=== PATIENT | female | born 1995 | race Caucasian/White ===

== ENCOUNTER 2021-07-15 08:33 | Inpatient (IN) | payer BC, OTHER ==
[~2021-07-15] VITALS: Ht 162.6 cm; Wt 120.7 kg
--- NOTE | 2021-07-19 08:19 | PR ---
[facility] [address] [facility] [place], [place] [address] Signed Progress Notes IP Datetime Report Generated by CPN: 07/19/2021 08:19 PROGRESS NOTES: [id number] Impression: Normal Progression of Labor Procedures: Artificial ROM Plan: Continue Present Management VITAL SIGNS: [id number] Vital Signs: Reviewed; Within Normal Limits EXAM: [id number] Dilatation: 4.0 Effacement: 75 Station: -3 Contractions: every 2-4 minutes MEMBRANES: [id number] Membranes Status: Ruptured Comments: Tolerating contractions well, would like Epidural later. FETUS A: [id number] FHR Baseline: 125 Variability: Moderate 6-25bpm Accelerations: 15X15 Presentation: Vertex FETUS B: [id number] Signing Physician: Lupe Quintero MD Copies: ~ *Electronically Signed* 07/19/21 08 LUPE QUINTERO MD PATIENT NAME: JOSE ROSARIO PROGRESS NOTE DATE OF : [birth year] PHYSICIAN: LUPE QUINTERO MD RPT #: [id number] REPORT IS CONFIDENTIAL AND NOT TO BE RELEASED WITHOUT AUTHORIZATION
--- NOTE | 2021-07-19 14:27 | PR ---
[facility] [address] [facility] [place], [place] [address] Signed Progress Notes IP Datetime Report Generated by CPN: 07/19/2021 14:27 PROGRESS NOTES: [id number] Impression: Normal Progression of Labor Other Impressions: Slow Progress of labor Procedures: Intrauterine Pressure Catheter; Scalp Electrode Plan: Continue Present Management VITAL SIGNS: [id number] Vital Signs: Reviewed; Within Normal Limits EXAM: [id number] Dilatation: 7.0 Effacement: 90 Station: -2 Contractions: every 2-4 minutes MEMBRANES: [id number] Membranes Status: Ruptured Comments: Patient was progressing well, but much slower in past 2-3 hours. IUPC inserted, may need Pitocin augmentation; will watch closely. FETUS A: [id number] FHR Baseline: 125 Variability: Moderate 6-25bpm Accelerations: 15X15 Presentation: Vertex FETUS B: [id number] Signing Physician: Lupe Quintero MD Copies: ~ *Electronically Signed* 07/19/21 1427 LUPE QUINTERO MD PATIENT NAME: JOSE ROSARIO PROGRESS NOTE DATE OF : [birth year] PHYSICIAN: LUPE QUINTERO MD RPT #: [id number] REPORT IS CONFIDENTIAL AND NOT TO BE RELEASED WITHOUT AUTHORIZATION
--- NOTE | 2021-07-19 17:35 | PR ---
[facility] [address] [facility] [place], [place] [address] Signed Progress Notes IP Datetime Report Generated by CPN: 07/19/2021 17:35 PROGRESS NOTES: [id number] Impression: Normal Progression of Labor Other Impressions: Slow Progress Procedures: Intrauterine Pressure Catheter; Scalp Electrode Plan: Continue Present Management VITAL SIGNS: [id number] Vital Signs: Reviewed; Within Normal Limits EXAM: [id number] Dilatation: 8.0 Effacement: 95 Station: -2 Contractions: every 2-4 minutes MEMBRANES: [id number] Membranes Status: Ruptured Comments: PAtient with minimal/no change in past 2.5 hours, despite Pitocin augmentation with good contraciton pattern. Discussed possible C/S, if no change soon. Will contine Pitocin and watch closely a little longer. Discussed possible C/S with patient. FETUS A: [id number] FHR Baseline: 125 Variability: Moderate 6-25bpm Accelerations: 15X15 Presentation: Vertex FETUS B: [id number] Signing Physician: Lupe Quintero MD Copies: ~ *Electronically Signed* 07/19/21 6196 LUPE QUINTERO MD PATIENT NAME: JOSE ROSARIO PROGRESS NOTE DATE OF : [birth year] PHYSICIAN: LUPE QUINTERO MD RPT #: [id number] REPORT IS CONFIDENTIAL AND NOT TO BE RELEASED WITHOUT AUTHORIZATION
--- NOTE | 2021-07-19 18:40 | PR ---
[facility] [address] [place], [place] [address] Signed Progress Notes IP Datetime Report Generated by CPN: 07/19/2021 18:40 PROGRESS NOTES: [id number] Impression: Arrest of Dilatation/Descent Other Impressions: Slow Progress Procedures: Intrauterine Pressure Catheter; Scalp Electrode Plan: Deliver- Section Informed Consent Obtain: Section Delivery; Risks, Benefits and Alternatives Discussed VITAL SIGNS: [id number] Vital Signs: Reviewed; Within Normal Limits EXAM: [id number] Dilatation: 8.0 Effacement: 95 Station: -2 Contractions: every 2-4 minutes MEMBRANES: [id number] Membranes Status: Ruptured Comments: No change for about 4-4.5 hours, LGA fetus, and difficult labor with first, smaller baby. Recommend C/S. Discussed procedure, risks/benefits. Questions answered. Consent signed. call out clerk to [place]. FETUS A: [id number] FHR Baseline: 125 Variability: Moderate 6-25bpm Accelerations: 15X15 Presentation: Vertex FETUS B: [id number] Signing Physician: Lupe Quintero MD Copies: ~ *Electronically Signed* 07/19/21 788 LUPE QUINTERO MD PATIENT NAME: JOSE ROSARIO PROGRESS NOTE DATE OF : [birth year] PHYSICIAN: LUPE QUINTERO MD RPT #: [id number] REPORT IS CONFIDENTIAL AND NOT TO BE RELEASED WITHOUT AUTHORIZATION
--- NOTE | 2021-07-19 20:54 | NUR ---
07/19/212053 Pinto,Christi Méndez 2010: PATIENT FEBRILE ON ARRIVAL TO RECOVERY. PSYCHOLOGICAL OPERATIONS SPECIALIST AWARE. PATIENT SHAKY AND C/O FEELING COLD. DENIES PAIN AND NAUSEA. 2029: TEMP DOWN TO 99.2. PATIENT STILL SHAKY AT TIMES. PATIENT BABY. 2037: REPORT GIVEN TO C RN.
--- NOTE | 2021-07-20 11:56 | PR ---
[facility] [address] [facility] [place], [place] [address] Signed PP Progress Notes Datetime Report Generated by CPN: 07/20/2021 11:56 SUBJECTIVE: [id number] Pain: Within Normal Limits Nausea/Vomiting: Denies Vital Signs: [id number] Vital Signs: Reviewed; Within Normal Limits Notable Details: PP Hgb/Hct = 10.4/30.7 Abdomen/Uterus: Normal Lochia: Normal Extremities: Normal Incision: Normal IMPRESSION/PLAN/PROCEDURES: [id number] Impression: Normal Progression Plan: Continue Present Management Procedures: None Progress Notes: Doing well, without complaint, Manrique in place and draining well. Tolerating food well. Increase activity as tolerated, Manrique out this afternoon. Signing Physician: Lupe Quintero MD Copies: ~ *Electronically Signed* 07/20/21 1156 LUPE QUINTERO MD PATIENT NAME: JOSE ROSARIO PROGRESS NOTE DATE OF : 96 PHYSICIAN: LUPE QUINTERO MD RPT #: [id number] REPORT IS CONFIDENTIAL AND NOT TO BE RELEASED WITHOUT AUTHORIZATION
--- NOTE | 2021-07-21 09:04 | PR ---
[facility] [address] [place] [address] Signed PP Progress Notes Datetime Report Generated by CPN: 07/21/2021 09:04 SUBJECTIVE: [id number] Pain: Within Normal Limits Nausea/Vomiting: Denies Bowel Movement: Yes Vital Signs: [id number] Vital Signs: Reviewed; Within Normal Limits Notable Details: PP Hgb/Hct = 10.4/30.7 Abdomen/Uterus: Normal Lochia: Normal Extremities: Normal Incision: Normal IMPRESSION/PLAN/PROCEDURES: [id number] Impression: Normal Progression Plan: Discharge Procedures: None Progress Notes: Doing well, without complaint, ready to go home. Signing Physician: Lupe Quintero MD Copies: ~ *Electronically Signed* 07/21/21 0904 LUPE QUINTERO MD PATIENT NAME: JOSE ROSARIO PROGRESS NOTE DATE OF : [birth year] PHYSICIAN: LUPE QUINTERO MD RPT #: [id number] REPORT IS CONFIDENTIAL AND NOT TO BE RELEASED WITHOUT AUTHORIZATION
--- NOTE | 2021-07-21 13:13 | OR ---
[facility] [address] [place] [place], [place] [address] Signed DATE OF OPERATION: 07/19/2021 SURGEON: Walt Live MD PREOPERATIVE DIAGNOSES: Failure to progress, posterior presentation, term , delivered. POSTOPERATIVE DIAGNOSES: Failure to progress, posterior presentation, term , delivered. PROCEDURE: Primary low transverse segment section, delivery of live male infant. AUDIOLOGY DOCTOR: Aline Malone MD ANESTHESIA: Epidural. ESTIMATED BLOOD LOSS: 700 mL. COMPLICATIONS: None. DRAINS: Manrique to bladder. FINDINGS: Live male infant, Apgars 8 and 9. Weight 7 pounds 12 ounces. Fetus was in LOP presentation, had moderate amount of caput present, the head wedged tightly in the pelvis. Normal uterus. Normal tubes and ovaries bilateral. DESCRIPTION OF PROCEDURE: The patient was brought to the operating room, placed in supine position. After adequate epidural anesthesia was obtained, she was prepped and draped in usual sterile fashion. Manrique catheter was already in the bladder. A Pfannenstiel skin incision was made with a scalpel and extended through the subcutaneous tissue with the Bovie and scalpel. The fascia was nicked with scalpel and extended in a transverse fashion using curved scissors. The underlying abdominal musculature was bluntly and sharply Electronically Signed By: WALT LIVE MD 07/21/21 1313 PATIENT NAME: JOSE ROSARIO OPERATIVE REPORT DATE OF : [birth year] REPORT #: [id number] PHYSICIAN: WALT LIVE MD PCP: WALT LIVE MD REPORT IS CONFIDENTIAL AND NOT TO BE RELEASED WITHOUT AUTHORIZATION [facility] [address] [place], [place] [address] Signed from the fascia above and below the incision. The abdominal musculature was bluntly and sharply along the midline. The peritoneum was grasped with hemostats, elevated, nicked with curved scissors, extended in vertical fashion using curved scissors. The Yasir self-retaining retractor was inserted into the incision and tightened in place. The lower uterine segment was identified. The lower uterine segment was then carefully nicked with scalpel and extended in transverse fashion using finger dissection. The was noted to be tightly wedged in the pelvis with some caput and also noted to be in LOP presentation. The head was delivered from the incision. There was a nuchal cord once which was removed, then the rest of the easily delivered from the incision. The cord was doubly clamped and cut. The infant passed off table in good condition to awaiting nurse. The placenta was manually removed. Uterine cavity was explored with a lap pad to remove any retained membranes. An angle stitch of 0 Monocryl was placed at one end of the incision and a running locking stitch of 0-Monocryl starting at the other end used to close the incision. There was slight bleeding at the left angle and so two boerur-ck-arqex stitchew were placed at the angle by 1st placing fingers behind and against the broad ligament to make sure no bowel or pelvic structures were caught within the closure. With these two stitches tied, good hemostasis was noted. The entire pelvis was irrigated, suctioned, and examined, and any superficial bleeding spots cauterized with the Bovie. Good hemostasis was obtained. When good hemostasis was obtained, the Yasir retractor was removed and sheet of ACell placed over the lower uterine segment to help with healing. The anterior wall peritoneum was closed using running stitch of 2-0 Vicryl suture. The abdominal wall incision was irrigated, suctioned, and examined, and any bleeding spots cauterized with the Bovie. The abdominal musculature was reapproximated using interrupted stitches of 0 Vicryl suture. Powdered ACell was sprinkled over the abdominal musculature and then the fascia was closed using two running stitch of 0 Vicryl suture meeting in the midline. The subcutaneous tissue was irrigated, suctioned, and examined, and any bleeding spots cauterized with the Bovie. Subcutaneous tissue was then closed using interrupted stitches of 3-0 Vicryl suture. The skin was reapproximated using skin clips. The patient tolerated the procedure well, went to recovery room in good condition. The sponge, needle, and instrument count were correct at the end of the procedure. MD CABRERA Davis/MODL /[id number] Electronically Signed By: WALT LIVE MD 07/21/21 1313 PATIENT NAME: JOSE ROSARIO OPERATIVE REPORT DATE OF : [birth year] REPORT #: [id number] PHYSICIAN: WALT LIVE MD PCP: WALT LIVE MD REPORT IS CONFIDENTIAL AND NOT TO BE RELEASED WITHOUT AUTHORIZATION [address] [address] Signed Copies: ~ Electronically Signed By: WALT LIVE MD 07/21/21 1313 PATIENT NAME: JOSE ROSARIO OPERATIVE REPORT DATE OF : [birth year] REPORT #: [id number] PHYSICIAN: WALT LIVE MD PCP: WALT LIVE MD REPORT IS CONFIDENTIAL AND NOT TO BE RELEASED WITHOUT AUTHORIZATION
== END 2021-07-21 13:50 | disposition home or self-care (01) | DRG 788 ==
LOC: FBC 08:33
PROVIDERS: ADMIT General Practice; ATTEND General Practice
PROC: 10D00Z1 Extraction of Products of Conception, Low, Open Approach (ICD-10-PCS; principal; 2021-07-19 19:07)
DX: O62.1 Secondary uterine inertia (principal); Z3A.39 39 weeks gestation of pregnancy; Z37.0 Single live birth; O69.81X0 Labor and delivery complicated by cord around neck, without compression, not applicable or unspecified; O24.92 Unspecified diabetes mellitus in childbirth
CPT/HCPCS: 01961; 85027; A9270; J0690; J1100; J1644; J2001; J2274; J2370; J2405; J2550; J2590; J2795; J7121; U0003

== ENCOUNTER 2022-07-28 11:27 | Emergency (ER) | payer OTHER, BC ==
[~2022-07-28] VITALS: Ht 160 cm; Wt 106.2 kg
--- OUTSIDE RECORDS SUMMARY | 2022-07-28 11:34 | XMS ---
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 [facility] VISIT COUNT (12 MO.) [address] TOTAL 3 NOTE: Visits indicate total known visits. ED/UCC VISIT TRACKING (12 MO.) 07/28/2022 11:28 [facility] TYPE: Emergency COMPLAINT: - RT HIP PAIN 07/28/2022 09:27 [facility] [place] TYPE: Emergency COMPLAINT: - RT HIP INJURY 10/07/2021 10:17 [facility] [place] TYPE: Emergency DIAGNOSES: - RUNNY NOSE RODNEY WEAKNESS - Contact with and (suspected) exposure to covid-19 INPATIENT VISIT TRACKING (12 MO.) No inpatient visits to display in this time frame [email or web address]
== END 2022-07-28 15:54 | disposition home or self-care (01) ==
LOC: ED 11:27
DX: G56.03 Carpal tunnel syndrome, bilateral upper limbs (principal); S73.101A Unspecified sprain of right hip, initial encounter; X58.XXXA Exposure to other specified factors, initial encounter; Z87.891 Personal history of nicotine dependence
CPT/HCPCS: A9270